=== PATIENT | female | born 1945 | race Caucasian/White ===

== ENCOUNTER → 2017-02-17 08:49 | Outpatient (CLI) | payer MEDICARE ==
[~2017-02-17] VITALS: Ht 165.1 cm; Wt 88.0 kg
[2017-02-17 10:40] VITALS: Ht 165.1 cm; Wt 88.0 kg
== END | disposition home or self-care (01) ==
LOC: D.FANS 08:49
DX: E11.9 Type 2 diabetes mellitus without complications (principal)

== ENCOUNTER 2018-11-25 08:00 | Outpatient (CLI) | payer MEDICARE ==
[2017-02-17 10:40] VITALS: BMI 32.2
== END 2018-11-25 23:59 | disposition home or self-care (01) ==
LOC: D.MAMMO 08:00
PROVIDERS: ATTEND Family Medicine
DX: Z12.31 Encounter for screening mammogram for malignant neoplasm of breast (principal)

== ENCOUNTER → 2019-05-31 09:50 | Outpatient (CLI) | payer MEDICARE ==
[2017-02-17 10:40] VITALS: BMI 32.2
--- NOTE | 2019-06-01 15:25 | ST ---
PATIENT:JEREMY GONCALVES MEDICAL RECORD: [id number] SEX: F LOCATION:[facility] ORDER #: ADMISSION DATE: 05/31/19 AGE OF PATIENT: 74 REFERRING PHYSICIAN: INTERPRETING PHYSICIAN: JAMEY YEE MD DATE OF SERVICE: 05/31/2019 PROCEDURE: Nuclear stress test. INDICATION: Angina, abnormal ECG, hypertension, hyperlipidemia, diabetes. She was exercised on standard Lexiscan protocol with 27 mCi of sestamibi injected at peak stress, 9 mCi were used previously for rest images. FINDINGS: Gated SPECT reveals preserved ejection fraction at 71% with good wall motion and thickening and brightening throughout all segments. SPECT imaging Cardiolite was used as myocardial fusion agent. There is homogeneous uptake throughout all segments at rest and stress with no evidence of inducible ischemia or previous infarction. OVERALL IMPRESSION: 1. This is a normal nuclear stress test with no evidence of inducible ischemia or previous infarction. 2. Gated SPECT reveals a preserved ejection fraction at 71%. In this patient with ongoing symptomatology, the current scan does not suggest the presence of hemodynamically significant coronary artery disease. Evaluate noncardiac etiology of chest pain. TRANSINT:[id number] Voice Confirmation ID: [id number] DOCUMENT ID: [id number] JAMEY YEE MD at 1525 CC: CADEN NASCIMENTO MD [id number] DICTATION DATE: 05/31/19 1605 FITTER/WELDER: 06/01/[address] [facility] CLI 05/31/19 [place] [id number] [place] [address]
--- NOTE | 2019-06-08 11:25 | EC ---
PATIENT:JEREMY GONCALVES DATE OF SERVICE: 05/31/19 SEX: F MEDICAL RECORD: [id number] DATE OF : 43 [facility] AGE OF PATIENT: 74 ADMISSION DATE: 05/31/19 REFERRING PHYSICIAN: INTERPRETING PHYSICIAN: RACHAEL JAIME MD ECHOCARDIOGRAM REPORT ECHO CHARGES 4 ECHO COMPLETE Date: 05/31/19 CLINICAL DIAGNOSIS: HTN/MURMUR/ANGINA ECHOCARDIOGRAPHIC MEASUREMENTS (adult normal given) AC root (d.<3.7cm) 2.3 cm LV Septum d (<1.2 cm> 1.4 cm Valve Excursion 1.1 cm LV Septum (systole) 1.6 cm Left Atria (s.<4.0cm> 4.0 cm LVPW d(<1.2cm) 1.4 cm RV (d.<2.3cm) 3.8 cm LVPW (sytole) 1.9 cm LV diastole(<5.6CM) 3.7 cm MV E-F(>70mm/sec) cm LV systole 2.2 cm LVOT Diameter 1.8 cm MV exc.(>10mm) 1.4 cm Est.ejection fraction (50-75%) % DOPPLER: LVIT cm/sec A 46.0 cm/sec E 67.0 cm/sec LA cm/sec RVSP 45 mmHg LVOT 109 cm/sec AOP1/2T 638 m/s Asc. Ao 138 cm/sec RVOT 55 cm/sec RA cm/sec PA 77 cm/sec AV Gradient Peak 7.64 mmHg AV Mean 4.49 mmHg AV Area 2.0 cm MV Gradient Peak 4.12 mmHg MV Mean 1.08 mmHg MV Area cm COMMENTS: [employer] Insurance: 2 [employer] Braider Setter: 3 Dr. Gaona TAPE# PACS Pericardial Effusion N DATE OF SERVICE: Adequate 2D, color flow, spectral Doppler, and M-mode. LVH is present. LV internal dimension is normal. Wall motion is normal. EF is greater than or equal to 55%. Aortic valve is tricuspid. No evidence of stenosis by Doppler interrogation. Left atrium appears normal at 4.0 cm. Mitral valve shows no prolapse. Trace MR. Right-sided chambers are grossly normal. Trace TR. ECHOCARDIOGRAM REPORT [id number] JEREMY GONCALVES TRANSINT:[id number] Voice Confirmation ID: [id number] DOCUMENT ID: [id number] RACHAEL JAIME MD at 1125 CC: [id number] DICTATION DATE: 06/01/19 1236 ACCOUNTANT CERTIFIED PUBLIC: 06/01/19 1508 [facility] CLI 05/31/19 [place] [id number] [place] [id number]
== END | disposition home or self-care (01) ==
LOC: D.HCCECHO 09:50
PROVIDERS: ATTEND Internal Medicine Interventional Cardiology
DX: I20.9 Angina pectoris, unspecified (principal); I10 Essential (primary) hypertension